=== PATIENT | female | born 1990 | race Caucasian/White ===

== ENCOUNTER 2016-07-23 15:17 | Outpatient (CLI) | payer BC, OTHER ==
[~2016-07-23] VITALS: Ht 177.8 cm; Wt 80.1 kg
[~2016-07-23 15:17] MED LIST: CEPHALEXIN500 M1 PO; CIPRO 500MG TA500 MG PO; FLAGYL500 MG PO; IMURAN 50MG TAB50 MG; LOESTRIN 21 1.51 TAB; MINASTRIN; MINASTRIN FE PO; NORCO 325 MG-51 TAB PO; PREDNISONE20 MG PO; REMICADE V100 MG/VIA IV; VSL#3112.5 Bill PO; ZITHROMAX Z PA250 MG PO; ZOFRAN 4MG T4 MG/TAB PO; ZOFRAN ODT8 MG PO
[2016-07-23 16:09] LABS: HEMOGLOBIN 12.5 g/dl (12.5-16.0); MEAN CELL VOLUME 84 fl (80.0-100.0); MEAN CORPUSCULAR HEMOGLOBIN 29 pg (27.0-31.0); MEAN CORPUSCULAR HGB CONC 35 g/dl (33.0-37.0); MEAN PLATELET VOLUME 10.9 fl (7.4-10.4); PLATELET COUNT 282 K/mm3 (130-400); RED BLOOD COUNT 4.26 M/mm3 (4.10-5.30); REDCELL DISTRIBUTION WIDTH-CV 11.9 % (11.5-14.5); WHITE BLOOD COUNT 6.6 K/mm3 (4.8-10.8)
[2016-07-23 16:10] LABS: HEMATOCRIT 35.8 % (37.0-47.0)
[2016-07-23 16:22] LABS: ALBUMIN 4.4 gm/dL (3.5-5.0); BILIRUBIN,DIRECT 0.3 mg/dL (0.0-0.4); BILIRUBIN,TOTAL 0.9 mg/dL (0.0-1.0); TOTAL PROTEIN 8.6 gm/dL (6.4-8.2)
[2016-07-23 17:15] VITALS: BP 121/71; PULSE 62; TEMP 98.2
[2016-07-23 17:45] VITALS: BP 100/58; PULSE 71; TEMP 98
[2016-07-23 18:16] VITALS: BP 115/59; PULSE 71; TEMP 98.1
[2016-07-23 18:50] VITALS: BP 126/54; PULSE 60; TEMP 98.1
[2016-07-23 19:23] VITALS: BP 118/62; PULSE 63; TEMP 98.1
== END 2016-07-23 19:24 | disposition home or self-care (01) ==
LOC: EUO 15:17
PROVIDERS: Internal Medicine Gastroenterology
DX: K50.813 Crohn's disease of both small and large intestine with fistula (principal)
CPT/HCPCS: J1745; J7050

== ENCOUNTER 2016-08-31 12:47 | Emergency (ER) | payer BC, OTHER ==
[~2016-08-31] VITALS: Ht 177.8 cm; Wt 75.0 kg
[2016-08-31 12:54] VITALS: BP 135/86; PULSE 77; TEMP 98.1
[2016-08-31] MEDS ORDERED: REMICADE V100 MG/VIA IV (13:00)
[2016-08-31] MEDS ORDERED: IMURAN 50MG TAB50 MG PO (13:00)
[2016-08-31] MEDS ORDERED: ZOFRAN 4MG T4 MG/TAB PO (13:21)
== END 2016-08-31 14:26 | disposition home or self-care (01) ==
LOC: COL.ER 12:47
DX: S06.0X0A Concussion without loss of consciousness, initial encounter (principal); W22.8XXA Striking against or struck by other objects, initial encounter

== ENCOUNTER 2016-09-17 10:42 | Outpatient (CLI) | payer BC, OTHER ==
[~2016-09-17] VITALS: Ht 177.8 cm; Wt 76.0 kg
[~2016-09-17 10:42] MED LIST changes: +IMURAN 50MG TAB50 MG PO
[2016-09-17 11:38] LABS: HEMATOCRIT 38.6 % (37.0-47.0); HEMOGLOBIN 13.3 g/dl (12.5-16.0); MEAN CELL VOLUME 84 fl (80.0-100.0); MEAN CORPUSCULAR HEMOGLOBIN 29 pg (27.0-31.0); MEAN CORPUSCULAR HGB CONC 35 g/dl (33.0-37.0); MEAN PLATELET VOLUME 10.7 fl (7.4-10.4); PLATELET COUNT 298 K/mm3 (130-400); RED BLOOD COUNT 4.59 M/mm3 (4.10-5.30); REDCELL DISTRIBUTION WIDTH-CV 12.2 % (11.5-14.5); WHITE BLOOD COUNT 4.1 K/mm3 (4.8-10.8)
[2016-09-17 12:55] VITALS: BP 109/77; PULSE 70; TEMP 98.4
[2016-09-17 13:25] VITALS: BP 113/81; PULSE 72; TEMP 97.8
[2016-09-17 13:55] VITALS: BP 119/72; PULSE 69; TEMP 97.6
[2016-09-17 14:25] VITALS: BP 116/73; PULSE 69; TEMP 97.6
[2016-09-17 14:55] VITALS: BP 105/79; PULSE 67; TEMP 98.4
== END 2016-09-17 15:30 | disposition home or self-care (01) ==
LOC: EUO 10:42
PROVIDERS: Internal Medicine Gastroenterology
DX: K50.813 Crohn's disease of both small and large intestine with fistula (principal)
CPT/HCPCS: J1745; J7050

== ENCOUNTER 2016-11-26 08:20 | Outpatient (CLI) | payer BC ==
[~2016-11-26] VITALS: Ht 177.8 cm; Wt 80.4 kg
[2016-11-26] MEDS ORDERED: ORACEA40MG PO (08:41)
[2016-11-26 08:47] LABS: HEMATOCRIT 38.6 % (37.0-47.0); HEMOGLOBIN 13.5 g/dl (12.5-16.0); MEAN CELL VOLUME 85 fl (80.0-100.0); MEAN CORPUSCULAR HEMOGLOBIN 30 pg (27.0-31.0); MEAN CORPUSCULAR HGB CONC 35 g/dl (33.0-37.0); MEAN PLATELET VOLUME 10.7 fl (7.4-10.4); PLATELET COUNT 298 K/mm3 (130-400); RED BLOOD COUNT 4.57 M/mm3 (4.10-5.30); REDCELL DISTRIBUTION WIDTH-CV 12.4 % (11.5-14.5); WHITE BLOOD COUNT 6.6 K/mm3 (4.8-10.8)
[2016-11-26 08:59] LABS: ALBUMIN 4.1 gm/dL (3.5-5.0); BILIRUBIN,TOTAL 0.6 mg/dL (0.0-1.0); TOTAL PROTEIN 7.9 gm/dL (6.4-8.2)
[2016-11-26 09:40] VITALS: BP 116/64; PULSE 61; TEMP 97.6
[2016-11-26 09:45] LABS: BILIRUBIN,DIRECT 0.6 mg/dL (0.0-0.4)
[2016-11-26 10:10] VITALS: BP 113/64; PULSE 69; TEMP 97.5
[2016-11-26 10:40] VITALS: BP 113/74; PULSE 62; TEMP 97.7
[2016-11-26 11:10] VITALS: BP 122/68; PULSE 68; TEMP 97.3
[2016-11-26 11:40] VITALS: BP 118/86; PULSE 65; TEMP 97.4
== END 2016-11-26 11:54 | disposition home or self-care (01) ==
LOC: EUO 08:20
PROVIDERS: Internal Medicine Gastroenterology
DX: K50.813 Crohn's disease of both small and large intestine with fistula (principal)
CPT/HCPCS: J1745; J7050